=== PATIENT | male | born 1970 | race Caucasian/White ===

== ENCOUNTER 2017-07-20 12:30 | Emergency (ER) | payer BC ==
[~2017-07-20] VITALS: Ht 177.8 cm; Wt 83.7 kg
[2017-07-20 14:30] VITALS: BP 128/88
== END 2017-07-20 14:33 | disposition home or self-care (01) ==
LOC: ED 14:21
DX: F41.1 Generalized anxiety disorder (principal); R06.4 Hyperventilation
CPT/HCPCS: 93005; 99283